=== PATIENT | female | born 1985 | race Hispanic/Latino ===

== ENCOUNTER → 2018-05-06 | Day surgery (SDC) | payer OTHER ==
[2018-04-20 09:06] LABS: BASOPHILS % 0.5 % (0.0-1.0); EOSINOPHILS # (AUTO) 0.3 (0.0-0.4); EOSINOPHILS % 4.3 % (0.0-6.0); HEMATOCRIT 42.3 % (34.2-44.1); HEMOGLOBIN 14.2 g/dL (12.0-16.0); LYMPHOCYTES # (AUTO) 1.8 (1.0-3.2); LYMPHOCYTES % 31.5 % (18.0-39.1); MEAN CORPUSCULAR HEMOGLOBIN 30.5 pg (28-32); MEAN CORPUSCULAR HGB CONC 33.6 g/dL (31-35); MEAN CORPUSCULAR VOLUME 90.8 fL (81-99); MONOCYTES # (AUTO) 0.4 (0.2-0.8); MONOCYTES % 6.9 % (4.4-11.3); NEUTROPHILS # (AUTO) 3.3 (2.1-6.9); NEUTROPHILS % 56.6 % (38.7-80.0); PLATELET COUNT 189 x10e3/uL (140-360); RED BLOOD COUNT 4.66 x10e6/uL (3.6-5.1); RED CELL DISTRIBUTION WIDTH 13.2 % (11.7-14.4)
[2018-04-20 09:28] LABS: ANION GAP 9.9 mmol/L (8-16); BLOOD UREA NITROGEN 8 mg/dL (7-26); BUN/CREATININE RATIO 10 (6-25); CARBON DIOXIDE 27 mmol/L (22-29); CHLORIDE 106 mmol/L (98-107); CREATININE, SERUM 0.79 mg/dL (0.57-1.11); EST GLOMERULAR FILTRATION RATE > 60 ML/MIN (60-); GLUCOSE 92 mg/dL (74-118); POTASSIUM 3.9 mmol/L (3.5-5.1); SODIUM 139 mmol/L (136-145)
[2018-04-20 10:07] LABS: EOSINOPHILS % (MANUAL) 3 % (0-7); LYMPHOCYTES % (MANUAL) 16 % (19-48); METAMYELOCYTES % (MANUAL) 2 % (0-0); MONOCYTES % (MANUAL) 9 % (3.4-9.0); MYELOCYTES % (MANUAL) 1 % (0-0); NEUTROPHILS % (MANUAL) 69 % (40-74)
[2018-04-20 10:10] LABS: ANISOCYTOSIS SLIGHT; PLATELET ESTIMATE ADEQUATE; PLATELET MORPHOLOGY COMMENT NORMAL; RBC MORPHOLOGY COMMENT NORMAL
[~2018-05-06] MED LIST: BETAMETHASONE DISODIUM PHOS 6 MG/ML VIAL ONE; BUPIVACAINE HCL 0.5% INJ 30 ML VIAL INJ ONE; CEFAZOLIN SOD 1 GM VIAL ONE; DEXAMETHASONE SOD PHOS INJ 4 MG/ML VIAL ONE; FENTANYL CITRATE/PF 100MCG/2 ML INJ ONE; KETOROLAC TROMETHAMINE 30 MG/ML VIAL ONE; LIDOCAINE HCL 1% LOCAL INJ 20 ML VIAL ONE; LIDOCAINE HCL 2% LOCAL INJ 5 ML SDV VIAL INJ ONE; MIDAZOLAM HCL 2 MG/2 ML VIAL ONE; MUPIROCIN 2% OINT 22 GM TUBE ONE; ONDANSETRON HCL INJ 2 MG/ML VIAL ONE; PROPOFOL IV EMULSION 10 MG/ML 20 ML VIAL ONE; SEVOFLURANE INHAL SOLN 250 ML PEN BTL ONE
--- NOTE | 2018-05-06 10:14 | Operative Report ---
DATE OF PROCEDURE: May 06, 2018 PREOPERATIVE DIAGNOSES 1. Painful hallux valgus deformity, left foot. 2. Painful contracted hammertoes, 4th and 5th digits, left foot, with an exostosis of the 4th digit, left. 3. Plantar calcaneal heel spur, left foot. 4. 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 5. Neuralgia to the medial plantar nerve, left foot. 6. Neuralgia to the lateral plantar nerve, left foot. POSTOPERATIVE DIAGNOSES 1. Painful hallux valgus deformity, left foot. 2. Painful contracted hammertoes, 4th and 5th digits, left foot, with an exostosis of the 4th digit, left. 3. Plantar calcaneal heel spur, left foot. 4. 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 5. Neuralgia to the medial plantar nerve, left foot. 6. Neuralgia to the lateral plantar nerve, left foot. OPERATIVE PROCEDURES 1. Barry bunionectomy with screw fixation, left foot. 2. Exostectomy, 4th digit, left. 3. Arthroplasty, 5th digit, left foot. 4. Resection of plantar calcaneal spur, left foot. 5. Neurolysis, tibial nerve, left foot. 6. Neurolysis, lateral plantar nerve, left foot. 7. Neurolysis, medial plantar nerve, left foot. 8. Intraoperative use of fluoroscopy. 9. Trigger point shot of cortisone. 8. Application of posterior splint. ANESTHESIA: General. HEMOSTASIS: Pneumatic thigh tourniquet at 350 mmHg. PROCEDURE IN DETAIL: Patient was taken into the operating room and placed on the operating room table in the supine position. Following induction of general anesthesia by the anesthesiologist, Webril wraps were placed on the patient's left thigh followed by application of left thigh tourniquet. The left lower extremity was then prepped and draped in the usual aseptic manner. The following procedure was then performed: Procedure #1: Barry bunionectomy with screw fixation, left foot. Attention was directed to the dorsomedial aspect of the 1st MPJ where a 6 cm linear incision was performed. The incision was deepened via sharp and blunt dissection being careful to retract vital structures and ligate superficial vessels as necessary. Once the level of the capsule was reached, a longitudinal capsulotomy was performed exposing a dorsomedial exostosis of the 1st metatarsal head. Via the use of an oscillating saw, the dorsomedial exostosis was excised from the operation site in toto. A V-osteotomy was then performed from medial to lateral. Capital fragment was then transitioned laterally. Upon adequate surgical and anatomical reduction utilizing proper AO technique, a 2.0 x 14 mm cortical screw in conjunction with a buried 0.045 K-wire was used to achieve stability at the osteotomy site. All redundant bone medially was excised utilizing an oscillating saw and rotating bur. Procedure #2: Exostectomy 4th digit, left foot. Attention was then directed to the lateral aspect of the 4th digit where a linear incision was performed overlying the proximal interphalangeal joint and distal interphalangeal joint area. The incision was deepened down to the joint capsule. Longitudinal capsulotomy was then performed exposing the lateral exostosis to the base of the middle phalanx and head of the proximal phalanx to the 4th toe, left foot. Via using the Nelia 44 bur, the exostosis was excised from the operation site in toto and all rough and bony edges were rasped smooth. Procedure #3: Arthroplasty 5th digit left lower extremity. Attention was directed to the dorsal aspect of the 5th toe where a curvilinear incision was performed overlying the proximal interphalangeal joint. Incision was then deepened down to the joint capsule. Transverse capsulotomy was then performed exposing the head of the proximal phalanx. Via the use of an oscillating saw, the proximal phalanx was excised from the operation site in toto. All rough and bony edges were then rasped smooth. Procedure #4: Resection of plantar calcaneal spur, left foot. Attention was then directed to the medial aspect of left heel where a 3 to 4 cm linear incision was performed. Incision was deepened down to the plantar fascia level. Medial one-half of plantar fascia was resected from its insertion site exposing a plantar calcaneal spur. Via the use of a reciprocating saw, the spur was excised from the operation site and all rough and bony edges were rasped smooth. Procedures #5, 6 and 7: Neurolysis of the tibial nerve, medial plantar nerve, and neurolysis of lateral plantar nerve, left foot. Attention was directed to the medial aspect of the right talotibial joint where a curvilinear incision was performed overlying the tarsal canal down to the sweetie pedis. The incision was then deepened via sharp and blunt dissection being careful to retract vital structures and ligate superficial vessels as necessary. Utilizing meticulous dissection, the flexor retinaculum was then encountered and cut. Then, the neurolysis of the tibial nerve was done. All the adhesions surrounding the tibial nerve were removed via sharp and blunt dissection, being careful to retract any vital structures and preserve the neurovascular structures intact. The incision was then carried down to the sweetie pedis. The sweetie pedis was cut and neurolysis of the medial and lateral plantar nerve was then performed. All adhesions down to the bifurcation of the nerve were then done via blunt and sharp dissection being careful to retract any vital structures and preserve any neurological structures intact. All areas were then copiously flushed with sterile saline solution and suctioned. Procedure #8: Intraoperative use of fluoroscopy was then used to make sure proper alignment and fixation was achieved with proper resection of spur. Closure was then obtained utilizing 3-0 Vicryl, 4-0 Vicryl, 4-0 nylon for capsule, subcutaneous tissue, and skin respectively after placing a TLS drain to the heel area to prevent hematoma formation. Procedure #9: Trigger point shot of cortisone was then given to the 1st and 4th interspace of the left foot and also to the tarsal canal of the left lower extremity. Then approximately 15 mL of 0.5% plain Marcaine plus 10 mL of 1% Xylocaine plain were used to achieve local anesthesia of above-mentioned surgical area. Sterile dressing was applied. Upon release of the thigh tourniquet, blood hyperemia was noted immediate to all digits of the patient's left foot. Procedure #10: Application of posterior splint. A properly placed posterior splint was then applied keeping the foot at 90 degrees with respect to the leg to try prevent any type of postoperative complications. Patient was then transferred from the OR to recovery room with vital signs stable and neurovascular status intact. No intraoperative complications were encountered. Blood loss from the surgery was minimal. Patient is to remain nonweightbearing with the aid of crutches. Keep her foot elevated and is to apply an ice pack to the ankle joint area. Job#: [id number]
--- NOTE | 2018-05-06 10:26 | Diagnostic Imaging Report ---
PROCEDURE:X-RAY LEFT FOOT, TWO VIEWS COMPARISON:None. INDICATIONS:POST OP FINDINGS: See conclusion. CONCLUSION: AP and lateral post-operative views of the left foot with overlying bandage material show post-surgical changes of a bunionectomy and arthroplasty with wire and screw through the distal first metatarsal. There is surrounding soft-tissue swelling consistent with recent surgery. A surgical drain is present. Please refer to performing physician's notes for full details of this procedure. Ze Egan D.O. Dictated by: Ze Egan D.O. on 05/06/2018 at 10:30 Electronically approved by: Ze Egan D.O. on 05/06/2018 at 10:30
== END | disposition home or self-care (01) ==
LOC: OR 05:42
PROVIDERS: ATTEND Podiatrist Foot Surgery
DX: M20.12 Hallux valgus (acquired), left foot (principal); M20.42 Other hammer toe(s) (acquired), left foot; M77.32 Calcaneal spur, left foot; G57.52 Tarsal tunnel syndrome, left lower limb; G58.8 Other specified mononeuropathies; M77.52 Other enthesopathy of left foot and ankle; Z01.812 Encounter for preprocedural laboratory examination
CPT/HCPCS: 28035; 28108; 28119; 28285 ×2; 28296; 36415; 64704 ×2; 73620; 80048; 81025; 84702; 85025; C1713; J0690; J0720; J1100; J1885; J2001 ×2; J2250; J2405